=== PATIENT | female | born 1980 | race Caucasian/White ===

== ENCOUNTER 2018-02-24 08:27 | Emergency (ER) | payer OTHER ==
[~2018-02-24] VITALS: Ht 160 cm; Wt 96.2 kg
[2018-02-24 08:30] VITALS: BP 137/90; Ht 160 cm; Wt 96.2 kg
== END 2018-02-24 09:25 | disposition home or self-care (01) ==
LOC: ED 08:27
DX: J02.9 Acute pharyngitis, unspecified (principal)
CPT/HCPCS: J0561

== ENCOUNTER 2018-11-06 08:29 | Emergency (ER) | payer OTHER ==
[~2018-11-06] VITALS: Ht 160 cm; Wt 93.9 kg
[2018-11-06 08:46] VITALS: BP 109/68; Ht 160 cm; Wt 93.9 kg
== END 2018-11-06 10:20 | disposition home or self-care (01) ==
LOC: ED 08:29
DX: J40 Bronchitis, not specified as acute or chronic (principal)
CPT/HCPCS: Q0092

== ENCOUNTER 2020-02-07 21:53 | Emergency (ER) | payer OTHER ==
[~2020-02-07] VITALS: Ht 160 cm; Wt 99.8 kg
[2020-02-07 22:02] VITALS: Ht 160 cm; Wt 99.8 kg
[2020-02-08 00:47] VITALS: BP 119/74
== END 2020-02-08 00:52 | disposition home or self-care (01) ==
LOC: ED 21:53
DX: M25.562 Pain in left knee (principal); W18.30XA Fall on same level, unspecified, initial encounter; Y93.89 Activity, other specified; Y92.89 Other specified places as the place of occurrence of the external cause; Y99.8 Other external cause status
CPT/HCPCS: Q0092

== ENCOUNTER 2020-05-22 10:51 | Emergency (ER) | payer OTHER ==
[2020-05-22 11:12] VITALS: Ht 160 cm
[2020-05-22 12:11] VITALS: BP 111/59
== END 2020-05-22 12:11 | disposition home or self-care (01) ==
LOC: ED 10:51
DX: M65.311 Trigger thumb, right thumb (principal)